=== PATIENT | female | born 1990 | race Native Hawaiian/Other Pacific Islander ===

== ENCOUNTER 2017-05-19 01:06 | Emergency (ER) | payer OTHER ==
[~2017-05-19] VITALS: Ht 170.2 cm; Wt 63.5 kg
== END 2017-05-19 03:11 | disposition home or self-care (01) ==
LOC: ED 01:06
DX: M79.651 Pain in right thigh (principal)
CPT/HCPCS: 36415; 85379; 99282

== ENCOUNTER 2017-12-10 16:53 | Emergency (ER) | payer OTHER ==
[~2017-12-10] VITALS: Ht 170.2 cm; Wt 67.1 kg
== END 2017-12-10 17:49 | disposition home or self-care (01) ==
LOC: ED 16:53
DX: M79.1 Myalgia (principal)
CPT/HCPCS: 99282